=== PATIENT | female | born 1950 | race Two or more races ===

== ENCOUNTER 2019-06-25 19:57 | Emergency (ER) | payer OTHER, MEDICARE ==
[~2019-06-25] VITALS: Ht 177.8 cm; Wt 78.0 kg
[2019-06-25 20:11] VITALS: BP 151/79
[2019-06-25] MEDS ORDERED: ALPR0.5T6 PO (20:14)
--- NOTE | 2019-06-25 20:15 | PHYS DOC ---
General Adult EDM: Chief Complaint: SHORTNESS OF BREATH HPI: HPI: Patient is a 68-year-old female has had some upper respiratory symptoms for the last couple of weeks. She's been to see her primary care physician several times for this. He is run a viral respiratory panel that has at least 15 different v iruses on it all of which were normal. She states she has a hard time getting a deep breath she denies any dyspnea on exertion. She's not had any fever chills or sweats. She states she occasionally has a cough is nonproductive.[] Review of Systems: Review of Systems: Constitutional: Denies fever or chills Eyes: Denies change in visual acuity HENT: Denies nasal congestion or sore throat Respiratory: Reports cough Cardiovascular: Denies chest pain or edema GI: Denies abdominal pain, nausea, vomiting, bloody stools or diarrhea : Denies dysuria Musculoskeletal: Denies back pain or joint pain Integument: Denies rash Neurologic: Denies headache, focal weakness or sensory changes Endocrine: Denies polyuria or polydipsia Lymphatic: Denies swollen glands Psychiatric: Reports anxiety Heart Score: Risk Factors: Risk Factors: DM, Current or recent (<one month) smoker, HTN, HLP, family history of CAD, obesity. Risk Scores: Score 0 - 3: 2.5% MACE over next 6 weeks - Discharge Home Score 4 - 6: 20.3% MACE over next 6 weeks - Admit for Clinical Observation Score 7 - 10: 72.7% MACE over next 6 weeks - Early Invasive Strategies Allergies: Allergies: Allergies Coded Allergies Type Severity Reaction Last Updated Verified Sulfa (Sulfonamide Antibiotics) Allergy Unknown 06/25/19 Yes Physical Exam: PE: Constitutional: Well developed, well nourished, no acute distress, non-toxic appearance. [] HENT: Normocephalic, atraumatic, bilateral external ears normal, oropharynx moist, no oral exudates, nose normal. [] Eyes: PERRLA, EOMI, conjunctiva normal, no discharge. [] Neck: Normal range of motion, no tenderness, supple, no stridor. [] Cardiovascular:Heart rate regular rhythm, no murmur [] Lungs & Thorax: Bilateral breath sounds clear to auscultation [] Abdomen: Bowel sounds normal, soft, no tenderness, no masses, no pulsatile masses. [] Skin: Warm, dry, no erythema, no rash. [] Back: No tenderness, no CVA tenderness. [] Extremities: No tenderness, no cyanosis, no clubbing, ROM intact, no edema. [] Neurologic: Alert and oriented X 3, normal motor function, normal sensory functi on, no focal deficits noted. [] Psychologic: Extremely anxious[] Current Patient Data: Vital Signs: Vital Signs Date Time Temp Pulse Resp B/P (MAP) Pulse Ox O2 Delivery O2 Flow Rate FiO2 06/25/19 20:06 98.0 118 18 151/79 (103) 100 Room Air EKG: EKG: [] Radiology/Procedures: Radiology/Procedures: [] Course & Med Decision Making: Course & Med Decision Making Pertinent Labs and Imaging studies reviewed. (See chart for details) [] Dragon Disclaimer: Dragon Disclaimer: This electronic medical record was generated, in whole or in part, using a voice recognition dictation system. Departure Departure: Impression: Primary Impression: Anxiety about health Disposition: HOME, SELF-CARE Condition: STABLE Referrals: PCP,UNKNOWN (PCP) Patient Instructions: Anxiety and Panic Attacks Scripts Alprazolam (ALPRAZOLAM) 0.5 Mg Tablet 0.5 MG PO PRN Q6HRS PRN for ANXIETY / AGITATION, #12 TAB 0 Refills Prov: DIANA TAPIA DO 06/25/19 DIANA TAPIA DO Jun 25, 2019 20:14
[2019-06-25] MEDS: ALPRAZolam 0.25 MG TABLET PO ONE (20:24)
== END 2019-06-25 20:16 | disposition home or self-care (01) ==
LOC: ER 19:57
DX: F41.9 Anxiety disorder, unspecified (principal); R05 Cough; Z88.2 Allergy status to sulfonamides
CPT/HCPCS: 99281

== ENCOUNTER → 2020-02-12 | Outpatient (CLI) | payer MEDICARE, OTHER ==
[~2020-02-12] MED LIST: ALPR0.5T6 PO
--- NOTE | 2020-02-12 16:31 | RAD ---
INDICATION: Reason: RUQ PAIN; HEPATIC CYSTS / Spl. Instructions: / History: COMPARISON: None. TECHNIQUE: Grayscale and color ultrasound images obtained through the abdomen. FINDINGS: Aorta/IVC: Visualized portion unremarkable. Pancreas: Obscured by bowel gas Liver: Hepatic cyst measuring 58 x 40 x 45 mm. Gallbladder: Partially distended. Low-level internal echoes Common Bile Duct: Not dilated. Right Kidney: No hydronephrosis. Left Kidney: No hydronephrosis. Spleen: Limited visualization secondary to overlying structures obscuring IMPRESSION: * Cystic lesion is seen within the liver. There is some low-level internal echoes within. Difficult to tell if this is secondary to some complex component such is debris or if this is artifactual in nature. Further workup option includes either obtaining a follow-up to ensure no growth or obtaining a CT/MRI liver protocol if further assessment is desired. * Liver is mildly echogenic which can be seen with fatty infiltration. * There is some low-level echoes within the gallbladder. This could be secondary to artifact as well but some debris within is not excluded. Electronically signed by: Donny Thapa MD (02/12/2020 4:28 PM) [id number]
== END ==
LOC: US 10:48
PROVIDERS: ATTEND Internal Medicine Gastroenterology
DX: K76.89 Other specified diseases of liver (principal); R10.11 Right upper quadrant pain
CPT/HCPCS: 76700

== ENCOUNTER → 2020-08-04 | Outpatient (CLI) | payer MEDICARE, OTHER ==
--- NOTE | 2020-08-04 10:40 | RAD ---
EXAM: DUAL ENERGY X-RAY ABSORPTIOMETRY (DEXA). HISTORY: Postmenopausal screening. FINDINGS: The lowest measured T-score is -0.8 in the right total femur, based on a bone mineral densi ty of 0.852 g/cm^2. Refer to the worksheets for full detail. No comparison examinations are available. IMPRESSION: Normal. Bone mineral density yields a T-score of -1.0 or greater. Fracture risk is low. FRAX was not calculated. METHODOLOGY: Dual energy x-ray absorptiometry was performed to measure bone mineral density. The foll owing analysis is based on the 2019 Official Positions of the International Society for Clinical Dens itometry: Measurements of the hips and the average of L1-L4 are preferred. When the spine and/or hip cannot be feasibly measured or interpreted, or in the setting of hyperparathyroidism, distal radial bone minera l density may be measured. The lumbar spine T-score is based on the average bone mineral density of L1-L4. In the setting of art ifact or anatomic abnormality, some lumbar levels may be excluded, and the remaining levels used for calculation. A single lumbar level is not used for diagnosis, and if only a single level is available for assessment, another anatomic site will be used to assign a diagnosis. The hip T-score is based on the bone mineral density measurement of the femoral neck or total proxima l femur of either side, whichever is lowest. Bilateral mean values are not used for diagnosis. The forearm T-score is derived from 33% of the distal radius of the nondominant forearm. For postmenopausal and perimenopausal women, and men age 50 or older, of all ethnic groups, T-scores are calculated through comparison of the current measurement with the NHANES III database standard fo r females aged 20-29 years. The lowest T-score of the evaluated anatomic sites is used to a ssign a diagnosis based on the World Health Organization densitometric classification. In premenopausal females and males younger than age 50, a Z-score is calculated based on population s pecific reference data for patient sex and self-reported ethnicity. Electronically signed by: Celia Palumbo MD (08/04/2020 10:38 AM) [id number]
== END ==
LOC: DXRAD 09:51
PROVIDERS: ATTEND Specialist
DX: N95.1 Menopausal and female climacteric states (principal); N95.9 Unspecified menopausal and perimenopausal disorder
CPT/HCPCS: 77080

== ENCOUNTER → 2021-03-08 | Outpatient (CLI) | payer MEDICARE, OTHER ==
--- NOTE | 2021-03-08 16:21 | RAD ---
EXAM: Pelvic sonogram. HISTORY: Abnormal bleeding. TECHNIQUE: Transabdominal and transvaginal sonographic imaging of the pelvis was performed. COMPARISON: None. FINDINGS: The uterus measures 6.2 x 3.4 x 2.2 cm. The endometrial stripe measures 1 mm in thickness. There is a 9 mm lesion within the posterior uterine fundus likely due to a fibroid. The left ovary is obscured. No left adnexal mass or cyst is seen. The right ovary is normal in size and demonstrate no rmal blood flow. There are prominent bilateral adnexal blood vessels. IMPRESSION: 1. Suspected 9 mm uterine fibroid. 2. Obscured left ovary. 3. Prominent bilateral adnexal vessels. Correlate for possible pelvic congestion. 4. Thin endometrium, consistent with the postmenopausal status of the patient. Electronically signed by: Flaquita Walton MD (03/08/2021 4:19 PM) [id number]
== END ==
LOC: US 15:26
PROVIDERS: ATTEND Physician Assistant
DX: N93.9 Abnormal uterine and vaginal bleeding, unspecified (principal); N85.9 Noninflammatory disorder of uterus, unspecified
CPT/HCPCS: 76830; 76856

== ENCOUNTER → 2021-05-10 | Outpatient (CLI) | payer MEDICARE, OTHER ==
--- NOTE | 2021-05-10 11:16 | RAD ---
EXAM: Pelvis, single view. HISTORY: Pain. COMPARISON: None. FINDINGS: A frontal view of the pelvis is obtained. There is no fracture, dislocation or subluxation. The femoral heads are normal in configuration. There is degenerative change at the lumbosacral junct ion. IMPRESSION: No acute osseous finding. Electronically signed by: Flaquita Walton MD (05/10/2021 11:14 AM) [id number]
== END ==
LOC: RAD 10:52
PROVIDERS: ATTEND Internal Medicine Hematology & Oncology
DX: M47.817 Spondylosis without myelopathy or radiculopathy, lumbosacral region (principal)
CPT/HCPCS: 72170

== ENCOUNTER → 2021-06-18 | Outpatient (CLI) | payer MEDICARE, OTHER ==
--- NOTE | 2021-06-18 20:13 | RAD ---
STUDY: US Abdomen Complete INDICATION: Elevated liver function tests. Abdominal pain. COMPARISON: 02/12/2020 and 12/08/2020 TECHNIQUE: Real-time grayscale and color Doppler sonographic evaluation of the abdomen. Findings: Pancreas: Incompletely visualized. The portion of the pancreas that is seen is unremarkable. Liver: Redemonstrated cystic focus in the region of the gallbladder fossa currently measured at 4.9 x 5.6 x 5.4 cm previously 5 x 5.6 x 4.9 cm. No internal or peripheral Doppler flow. No newly seen foca l hepatic parenchymal abnormality. Normal size of the liver at 14.8 cm longitudinal. Unchanged mild i ncreased echogenicity of the hepatic parenchyma. Aorta/IVC/Main Portal Vein: Unremarkable IVC at the liver. Patent main portal vein with normal flow d irection. The visualized abdominal aorta is nonaneurysmal. Gall Bladder: Surgically absent. Common Bile Duct: Nondilated common duct at 0.3 cm. Right Kidney: Measures 9.6 cm longitudinal. No hydronephrosis. Left Kidney: Measures 9.6 cm longitudinal. No hydronephrosis. Spleen: Measures 7.9 cm longitudinal. Miscellaneous: None. Impression: 1. Status post cholecystectomy. Nondilated common duct. 2. Redemonstrated cystic focus in the region of the gallbladder fossa appearing to arise from the li fernando. This has not significantly changed in size from the most recent comparison performed on 1 again measuring up to 5.6 cm in maximum dimension. Stability over time is typical of a benign cyst. 3. Unremarkable kidneys, spleen and partially visualized pancreas. Electronically signed by: ARAVIND ESCOBEDO MD (06/18/2021 8:11 PM) [facility]
== END ==
LOC: US 10:50
PROVIDERS: ATTEND Family Medicine
DX: R94.5 Abnormal results of liver function studies (principal); Z90.49 Acquired absence of other specified parts of digestive tract
CPT/HCPCS: 76700